=== PATIENT | male | born 1985 | race Caucasian/White ===

== ENCOUNTER → 2020-12-06 15:36 | Outpatient (BNVA) | payer MEDICAID, SELFPAY | PROVIDERS: Family Provider Family Medicine; PCP Family Medicine; Visit Provider Orthopaedic Surgery | DX: S52.092A Other fracture of upper end of left ulna, initial encounter for closed fracture (principal); X58.XXXA Exposure to other specified factors, initial encounter | CPT/HCPCS: 73090 ==

== ENCOUNTER 2021-01-11 21:50 | Emergency (ER) | payer MEDICAID, SELFPAY ==
[2021-01-11 22:15] VITALS: BP 170/116; PULSE 112; RESP 18; TEMP 36.6; O2SAT 97; BMI 27.1
[2021-01-11 22:33] VITALS: BP 152/111; PULSE 111
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
[2021-01-11 23:42] VITALS: BP 123/80; PULSE 94; RESP 19; O2SAT 95
--- NOTE | 2021-01-12 09:04 | DCPLANNER ---
manager spa had message to schedule a follow up appointment for patient with ortho. manager spa called the ortho clinic, spoke with Joann, gave clinic patients information. manager spa was told that patients information would be printed and reviewed. Clinic will call patient with appointment information.
--- NOTE | 2021-01-13 12:54 | DCPLANNER ---
Patient has a follow up appointment scheduled for Sunday, January 31, 2021 at 2;[address] Almodovar at ortho. Clinic will call patient with appointment information.
--- NOTE | 2021-02-24 09:18 | DCPLANNER ---
Patient had a follow up appointment scheduled for 01.31.[address] Almodovar - patient did attend appointment.
== END 2021-01-11 23:47 | disposition home or self-care (01) ==
PROVIDERS: Emergency Provider Nurse Practitioner Family; PCP Family Medicine
DX: S42.124A Nondisplaced fracture of acromial process, right shoulder, initial encounter for closed fracture (principal); S52.252A Displaced comminuted fracture of shaft of ulna, left arm, initial encounter for closed fracture; Y00.XXXA Assault by blunt object, initial encounter
CPT/HCPCS: 73060; 73090; 73130; 99282

== ENCOUNTER → 2021-01-31 14:42 | Outpatient (BNVA) | payer MEDICAID, SELFPAY | PROVIDERS: PCP Family Medicine; Visit Provider Orthopaedic Surgery | DX: S52.252D Displaced comminuted fracture of shaft of ulna, left arm, subsequent encounter for closed fracture with routine healing (principal); X58.XXXD Exposure to other specified factors, subsequent encounter | CPT/HCPCS: 73090 ==

== ENCOUNTER 2021-03-25 01:53 | Emergency (ER) | payer MEDICAID, SELFPAY ==
[2021-03-25 01:59] VITALS: BP 162/94; PULSE 100; RESP 16; TEMP 36.6; O2SAT 98; BMI 19.0
--- NOTE | 2021-03-25 02:14 | W.ED.MALEGU ---
HPI - Male Genitourinary General: Chief complaint: Urogenital-Male Stated complaint: UTI Time Seen by Provider: 03/25/21 02:13 History of Present Illness: HPI Narrative: 35-year-old male patient comes in today with complaints of dysuria and penile discharge. Patient has noticed it for the last 3 days. Patient reports no new partner for the last 15 years. However, patient reports that they have been at times over the last few months. Patient appears well. Patient appears in mild pain. Review of Systems : Reports: difficulty urinating and penile discharge Physical Exam Const: COMMON NORMALS: alert GENERAL APPEARANCE: cooperative Neck/C-Spine: COMMON NORMALS: full ROM Resp: COMMON NORMALS: normal respiratory effort and clear to auscultation bilaterally AUSCULTATION: clear to auscultation bilaterally Cardio: COMMON NORMALS: regular rate and regular rhythm RATE: regular rate RHYTHM: regular rhythm GI: COMMON NORMALS: Soft to palpation PALPATION: Yes Soft to palpation : MEATUS: meatal discharge SCROTUM: Yes testes descended bilaterally Extremity: COMMON NORMALS: normal to inspection Neuro: SENSORIUM/ORIENTATION: Yes alert Psych: ATTITUDE: Yes calm Skin: COMMON NORMALS: no rashes or lesions noted GENERAL SKIN EXAM: no rashes or lesions noted Course Vital Signs: Vital signs: Vital Signs Temperature 97.8 F 03/25/21 01:59 Pulse Rate 97 03/25/21 02:26 Respiratory Rate 17 03/25/21 02:26 Blood Pressure 143/94 03/25/21 02:26 Pulse Oximetry 96 03/25/21 02:26 MDM - Male MDM Narrative: Medical decision making narrative: 35-year-old male comes in today with complaints of dysuria and penile discharge. On exam examination patient does have some mucopurulent drainage at the end of the meatus with some mild redness. Differential diagnosis includes urethritis, gonorrhea versus chlamydia, UTI. Gonorrhea chlamydia panel was ordered and will be outstanding, urinalysis was ordered. Patient will be treated for STI with 500 mg of ceftriaxone and 100 mg of doxycycline. We will continue doxycycline outpatient 100 mg twice a day for 7 days. Encourage patient drink plenty of fluids and follow-up with primary care. Recommended to use of condoms until results from gonorrhea chlamydia test come back. Patient reported understanding agreed to plan. 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
[2021-03-25 02:26] VITALS: BP 143/94; PULSE 97; RESP 17; O2SAT 96
[2021-03-25] MEDS: doxycycline 100 mg Tablet PO (02:46)
[2021-03-25 02:59] VITALS: BP 118/76; PULSE 82; RESP 18; O2SAT 97
[2021-03-25 03:08] LABS: Add Urine Microscopic? YES; Bilirubin Urine Neg (Negative); Blood Urine 2+ (Negative); Glucose Urine UA Norm (Normal); Ketones Urine Negative (Negative); Leukocyte Esterase Urine 2+ (Negative); Nitrate Urine Negative (Negative); Protein Urine Trace (Negative); Urine Color Yellow (Yellow); Urobilinogen Urine 1 mg/dL (Negative); pH Urine 5 (5-7)
[2021-03-25 03:10] LABS: Add Urine Culture? Yes; Bacteria Urine 3+ /hpf; RBC Urine >100 /hpf (0-2); Squamous Epithelial Cell Urine 0-4 /hpf (0-5); WBC Urine TOO NUMEROUS TO CNT /hpf (0-5)
--- NOTE | 2021-03-25 15:44 | PC.NURSE ---
Made attempt to contact pt via phone call. States voice mail is full.
== END 2021-03-25 03:01 | disposition home or self-care (01) ==
PROVIDERS: Emergency Provider Nurse Practitioner Family; PCP Family Medicine
DX: R30.0 Dysuria (principal); R36.9 Urethral discharge, unspecified
CPT/HCPCS: 81001; 87086; 87491; 87591; 96372; 99283; J0696

== ENCOUNTER → 2022-12-04 12:54 | Outpatient (BNVA) | payer MEDICAID, SELFPAY | PROVIDERS: PCP Family Medicine; Visit Provider Nurse Practitioner Family | DX: R31.9 Hematuria, unspecified (principal) | CPT/HCPCS: 81000; 87086; 87491; 87591 ==

== ENCOUNTER → 2023-03-20 07:46 | Outpatient (BNVA) | payer MEDICAID, SELFPAY | PROVIDERS: PCP Family Medicine; Visit Provider Nurse Practitioner Family | DX: J06.9 Acute upper respiratory infection, unspecified; R51.9 Headache, unspecified | CPT/HCPCS: 87400; 87426 ==

== ENCOUNTER → 2024-11-07 16:34 | Outpatient (BNVA) | payer SELFPAY | PROVIDERS: PCP Family Medicine; Visit Provider Family Medicine | DX: R39.9 Unspecified symptoms and signs involving the genitourinary system (principal) | CPT/HCPCS: 81000 ==